=== PATIENT | male | born 1955 | race Hispanic/Latino ===

== ENCOUNTER → 2020-06-21 | Outpatient (CLI) | payer MEDICARE ==
[~2020-06-21] MED LIST: ACAR50TA5 PO; ASPI-1443 PO; ATOR40TA71 PO; CEFAZOLIN SODIUM 1 GM VIAL IVP SCH; CETI10TA86 PO; CILO100T PO; FAMO20TA8 PO; FURO20TA4 PO; GLIP10TA9 PO; HYDR-4068 PO; LOSA50TA64 PO; METF-445 PO; METO25TA6 PO; MONT10TA32 PO; SODIUM CHLORIDE 0.9% 500ML 500 ML IV SCH
[2020-06-21 15:24] LABS: BASOPHILS % (AUTO) 0.5 % (0.0-5.0); EOSINOPHILS % (AUTO) 4.6 % (0.0-8.0); HEMATOCRIT 47.8 % (42-54); LYMPHOCYTES % (AUTO) 19.2 % (21.0-51.0); MEAN CORPUSCULAR HEMOGLOBIN 29.2 pg (27.0-33.0); MEAN CORPUSCULAR HGB CONC 32.2 g/dL (32.0-36.0); MEAN CORPUSCULAR VOLUME 90.5 fL (79-99); MONOCYTES % (AUTO) 9.6 % (3.0-13.0); NEUTROPHILS % (AUTO) 65.8 % (40.0-77.0); PLATELET COUNT (AUTO) 295 K/uL (130-400); RED BLOOD CELL COUNT(AUTO) 5.28 MIL/uL (4.50-6.20); RED CELL DISTRIBUTION WIDTH 12.7 % (11.0-15.5); WHITE BLOOD COUNT (AUTO) 7.4 K/uL (4.8-10.8)
[2020-06-21 15:36] LABS: CREATININE 0.7 mg/dL (0.5-1.5); POTASSIUM 4.2 mmol/L (3.5-5.1)
[2020-06-21 15:44] LABS: INR 1.03 (0.85-1.15); PROTHROMBIN TIME 11.2 SEC (9.6-11.6)
== END | disposition home or self-care (01) ==
LOC: DAH 10:00 → EDSTATUS 13:00
PROVIDERS: ATTEND Internal Medicine Cardiovascular Disease
DX: Z01.818 Encounter for other preprocedural examination (principal); I50.22 Chronic systolic (congestive) heart failure; I44.7 Left bundle-branch block, unspecified; I42.8 Other cardiomyopathies; Z79.01 Long term (current) use of anticoagulants
CPT/HCPCS: 36415; 80048; 85025; 85610; 85730; 93005

== ENCOUNTER → 2020-06-22 | Outpatient (CLI) | payer MEDICARE ==
[~2020-06-22] VITALS: Ht 162.6 cm; Wt 83.3 kg
[~2020-06-22] MED LIST changes: -CEFAZOLIN SODIUM 1 GM VIAL IVP SCH; -SODIUM CHLORIDE 0.9% 500ML 500 ML IV SCH
== END | disposition home or self-care (01) ==
LOC: SHCH 11:38
PROVIDERS: ATTEND Internal Medicine Cardiovascular Disease
DX: I08.0 Rheumatic disorders of both mitral and aortic valves (principal); I50.22 Chronic systolic (congestive) heart failure; I11.0 Hypertensive heart disease with heart failure; E66.9 Obesity, unspecified; E78.5 Hyperlipidemia, unspecified
CPT/HCPCS: 93306; 93356

== ENCOUNTER 2021-08-13 05:52 | Observation (INO) | payer OTHER, MEDICARE ==
[~2021-08-13] VITALS: Ht 162.6 cm; Wt 82.6 kg
[~2021-08-13 05:52] MED LIST changes: -CETI10TA86 PO; +CETI10TA87 PO; +MONT-39 PO; -MONT10TA32 PO
[2021-08-13 06:09] LABS: BASOPHILS % (AUTO) 0.5 % (0.0-5.0); EOSINOPHILS % (AUTO) 2.1 % (0.0-8.0); HEMATOCRIT 46.4 % (42-54); LYMPHOCYTES % (AUTO) 17.6 % (21.0-51.0); MEAN CORPUSCULAR HEMOGLOBIN 28.6 pg (27.0-33.0); MEAN CORPUSCULAR HGB CONC 33.2 g/dL (32.0-36.0); MEAN CORPUSCULAR VOLUME 86.2 fL (79-99); MONOCYTES % (AUTO) 6.1 % (3.0-13.0); NEUTROPHILS % (AUTO) 73.3 % (40.0-77.0); PLATELET COUNT (AUTO) 237 K/uL (130-400); RED BLOOD CELL COUNT(AUTO) 5.38 MIL/uL (4.50-6.20); RED CELL DISTRIBUTION WIDTH 13.9 % (11.0-15.5); WHITE BLOOD COUNT (AUTO) 9.9 K/uL (4.8-10.8)
[2021-08-13 06:19] LABS: CREATININE 0.6 mg/dL (0.5-1.5); POTASSIUM 3.3 mmol/L (3.5-5.1)
[2021-08-13 06:21] LABS: INR 1.05 (0.85-1.15); PROTHROMBIN TIME 11.4 SEC (9.6-11.6)
[2021-08-13 06:22] LABS: PARTIAL THROMBOPLASTIN TIME 27.2 SEC (26.3-35.5)
[2021-08-13 06:29] LABS: ALBUMIN 3.2 g/dL (3.5-5.0); BILIRUBIN,TOTAL 0.4 mg/dL (0.2-1.0); MAGNESIUM 1.4 mg/dL (1.80-2.40); TOTAL PROTEIN, SERUM 6.7 g/dL (6.0-8.3)
[2021-08-13] MEDS ORDERED: ACETAMINOPHEN 325 MG TAB PO ONE (06:30)
[2021-08-13] MEDS ORDERED: IPRATROPIUM/ALBUTEROL SULFATE 3 ML SOLUTION IH ONE ×2 (06:30→07:30)
[2021-08-13 06:50] LABS: B-TYPE NATRIURETIC PEPTIDE 347 pg/mL (0-100)
[2021-08-13] MEDS ORDERED: ONDANSETRON 4MG INJ IV PRN (07:00)
[2021-08-13] MEDS ORDERED: NITROGLYCERIN 0.4 MG SL TAB SL PRN (07:00)
[2021-08-13] MEDS ORDERED: GUAIFENESIN-DM 200/20 MG 10 ML PO PRN (07:00)
[2021-08-13] MEDS ORDERED: LACTULOSE 20 GM/30 ML UDCUP PO PRN (07:00)
[2021-08-13] MEDS ORDERED: ACETAMINOPHEN 325 MG TAB PO PRN ×2 (07:00)
[2021-08-13] MEDS ORDERED: MAG/ALUM/SIMETH 30 ML UDCUP PO PRN (07:00)
[2021-08-13] MEDS ORDERED: ONDANSETRON 4MG INJ ONE (07:26)
[2021-08-13] MEDS ORDERED: MORPHINE 2 MG SYG ONE (07:27)
[2021-08-13] MEDS ORDERED: MORPHINE 2 MG SYG IVP ONE (07:30)
[2021-08-13] MEDS ORDERED: ONDANSETRON 4MG INJ IVP ONE (07:30)
[2021-08-13] MEDS ORDERED: MAGNESIUM OXIDE 400 MG TABLET PO SCH (07:30)
[2021-08-13] MEDS: IPRATROPIUM/ALBUTEROL SULFATE 3 ML SOLUTION IH SCH ×4 (07:34→23:32)
[2021-08-13 09:05] LABS: APPEARANCE,URINE Clear (CLEAR); BILIRUBIN,URINE Negative (NEGATIVE); COLOR,URINE Yellow (YELLOW); GLUCOSE, URINE (UA) >=1000 mg/dL (NEGATIVE); KETONES,URINE Negative (NEGATIVE); LEUKOCYTE ESTERASE ,URINE Negative (NEGATIVE); NITRATE,URINE Negative (NEGATIVE); OCCULT BLOOD,URINE Negative (NEGATIVE); PH,URINE 5.5 (5.0-8.0); PROTEIN,URINE Negative (NEGATIVE)
[2021-08-13 09:12] LABS: AMPHET/METH SCREEN,URINE NEGATIVE (NEGATIVE); BARBITURATE SCREEN, URINE NEGATIVE (NEGATIVE); BENZODIAZEPINES SCREEN,URINE NEGATIVE (NEGATIVE); CANNABINOID SCREEN,URINE NEGATIVE (NEGATIVE); COCAINE SCREEN,URINE NEGATIVE (NEGATIVE); OPIATE SCREEN,URINE POSITIVE (NEGATIVE); PHENCYCLIDINE SCREEN,URINE NEGATIVE (NEGATIVE)
[2021-08-13] MEDS ORDERED: FUROSEMIDE 40MG VIAL IV ONE (09:30)
[2021-08-13] MEDS ORDERED: PHARMACY COMMUNICATION MISC SCH (09:30)
[2021-08-13 09:56] LABS: BACTERIA,URINE None Seen /HPF (None Seen); RBC,URINE 0-1 /HPF (0-1); SQUAMOUS EPITHELIAL CELL,UR Rare /HPF (0-2); WBC,URINE 0-1 /HPF (0-1)
[2021-08-13] MEDS: FAMOTIDINE 20MG VIAL IV SCH (10:05)
[2021-08-13] MEDS: ENOXAPARIN SODIUM 40 MG/0.4 ML SYRINGE SQ SCH (10:05)
[2021-08-13] MEDS: PREDNISONE 20 MG TABLET PO SCH (10:06)
[2021-08-13 10:15] VITALS: BP 180/91
[2021-08-13] MEDS ORDERED: POTASSIUM CHLORIDE 10% ELIXIR 20 MEQ/15 ML UDCUP PO PRN (10:30)
[2021-08-13] MEDS ORDERED: POTASSIUM CHLORIDE 20MEQ/100ML 100 ML IV PRN (10:30)
[2021-08-13] MEDS: KCL 20 MEQ ERTAB PO PRN ×3 (10:30→16:52)
[2021-08-13] MEDS ORDERED: LIDOCAINE HCL-MPF 1% 2ML VIAL IV PRN (10:30)
[2021-08-13 11:05] VITALS: BP 138/76
[2021-08-13 15:50] VITALS: BP 157/70
[2021-08-13] MEDS ORDERED: OMEP20CA12 PO (16:05)
[2021-08-13] MEDS ORDERED: FUROSEMIDE 40MG VIAL IV SCH (16:30)
[2021-08-13] MEDS: KETOROLAC 15MG/ML VIAL (15MG/ML) IM PRN (16:52)
[2021-08-13 19:00] VITALS: BP 156/67
[2021-08-13] MEDS ORDERED: GABAPENTIN 100 MG CAPSULE ONE (19:36)
[2021-08-13] MEDS: ZOLPIDEM TARTRATE 5 MG TAB PO PRN (20:01)
[2021-08-13] MEDS: GABAPENTIN 100 MG CAPSULE PO SCH (20:01)
[2021-08-13] MEDS: SACUBITRIL/VALSARTAN 1 EACH TABLET PO SCH (20:02)
[2021-08-14] VITALS: BP 141/69
[2021-08-14 04:00] VITALS: BP 141/72
[2021-08-14 04:40] LABS: BASOPHILS % (AUTO) 0.3 % (0.0-5.0); EOSINOPHILS % (AUTO) 0.1 % (0.0-8.0); HEMATOCRIT 41.8 % (42-54); LYMPHOCYTES % (AUTO) 10.8 % (21.0-51.0); MEAN CORPUSCULAR HEMOGLOBIN 29.6 pg (27.0-33.0); MEAN CORPUSCULAR HGB CONC 34.4 g/dL (32.0-36.0); MONOCYTES % (AUTO) 8.1 % (3.0-13.0); NEUTROPHILS % (AUTO) 80.3 % (40.0-77.0); PLATELET COUNT (AUTO) 251 K/uL (130-400); RED BLOOD CELL COUNT(AUTO) 4.86 MIL/uL (4.50-6.20); RED CELL DISTRIBUTION WIDTH 14.4 % (11.0-15.5); WHITE BLOOD COUNT (AUTO) 13.6 K/uL (4.8-10.8)
[2021-08-14 04:58] LABS: ALBUMIN 3.4 g/dL (3.5-5.0); BILIRUBIN,TOTAL 0.5 mg/dL (0.2-1.0); CREATININE 0.8 mg/dL (0.5-1.5); POTASSIUM 3.3 mmol/L (3.5-5.1); TOTAL PROTEIN, SERUM 7.1 g/dL (6.0-8.3)
[2021-08-14 05:10] LABS: B-TYPE NATRIURETIC PEPTIDE 169 pg/mL (0-100)
[2021-08-14] MEDS: IPRATROPIUM/ALBUTEROL SULFATE 3 ML SOLUTION IH SCH ×4 (06:30→23:47)
[2021-08-14 08:00] VITALS: BP 129/64
[2021-08-14] MEDS: FAMOTIDINE 20MG VIAL IV SCH (09:00)
[2021-08-14] MEDS ORDERED: FUROSEMIDE 20 MG TABLET PO SCH (09:00)
[2021-08-14] MEDS: GABAPENTIN 100 MG CAPSULE PO SCH ×3 (09:01→21:07)
[2021-08-14] MEDS: PREDNISONE 20 MG TABLET PO SCH (09:01)
[2021-08-14] MEDS: SACUBITRIL/VALSARTAN 1 EACH TABLET PO SCH ×2 (09:02→21:07)
[2021-08-14] MEDS: ASPIRIN 81 MG EC TAB PO SCH (09:02)
[2021-08-14] MEDS: ENOXAPARIN SODIUM 40 MG/0.4 ML SYRINGE SQ SCH (09:03)
[2021-08-14] MEDS: METOPROLOL SUCCINATE 50 MG TAB.SR.24H PO SCH (09:03)
[2021-08-14] MEDS: KCL 20 MEQ ERTAB PO PRN ×2 (09:12→21:07)
[2021-08-14] MEDS: KETOROLAC 15MG/ML VIAL (15MG/ML) IM PRN (10:10)
[2021-08-14 12:00] VITALS: BP 131/74
[2021-08-14 16:00] VITALS: BP 130/64
[2021-08-14] MEDS: INSULIN HUMULIN R 100 UNIT/ML 3ML SQ SCH ×2 (17:06→20:45)
[2021-08-14 19:00] VITALS: BP 113/67
[2021-08-14] MEDS ORDERED: FUROSEMIDE 40 MG TABLET PO SCH (21:00)
[2021-08-14] MEDS: FUROSEMIDE 20 MG TABLET PO SCH (21:06)
[2021-08-14] MEDS: MONTELUKAST SODIUM 10 MG TAB PO SCH (21:07)
[2021-08-15] VITALS: BP 127/57
[2021-08-15 04:00] VITALS: BP 128/73
[2021-08-15 05:10] LABS: BASOPHILS % (AUTO) 0.4 % (0.0-5.0); EOSINOPHILS % (AUTO) 0.7 % (0.0-8.0); HEMATOCRIT 43.5 % (42-54); LYMPHOCYTES % (AUTO) 15.1 % (21.0-51.0); MEAN CORPUSCULAR HEMOGLOBIN 29.7 pg (27.0-33.0); MEAN CORPUSCULAR VOLUME 87.2 fL (79-99); MONOCYTES % (AUTO) 9.4 % (3.0-13.0); PLATELET COUNT (AUTO) 250 K/uL (130-400); RED BLOOD CELL COUNT(AUTO) 4.99 MIL/uL (4.50-6.20); RED CELL DISTRIBUTION WIDTH 14.6 % (11.0-15.5); WHITE BLOOD COUNT (AUTO) 11.3 K/uL (4.8-10.8)
[2021-08-15 05:25] LABS: ALBUMIN 3.1 g/dL (3.5-5.0); BILIRUBIN,TOTAL 0.5 mg/dL (0.2-1.0); CREATININE 0.7 mg/dL (0.5-1.5); POTASSIUM 4.2 mmol/L (3.5-5.1); TOTAL PROTEIN, SERUM 6.9 g/dL (6.0-8.3)
[2021-08-15] MEDS: INSULIN HUMULIN R 100 UNIT/ML 3ML SQ SCH ×4 (06:07→19:41)
[2021-08-15] MEDS: IPRATROPIUM/ALBUTEROL SULFATE 3 ML SOLUTION IH SCH ×4 (06:34→23:35)
[2021-08-15 08:00] VITALS: BP 129/59
[2021-08-15] MEDS: GABAPENTIN 100 MG CAPSULE PO SCH ×3 (09:17→19:32)
[2021-08-15] MEDS: ENOXAPARIN SODIUM 40 MG/0.4 ML SYRINGE SQ SCH (09:17)
[2021-08-15] MEDS: SACUBITRIL/VALSARTAN 1 EACH TABLET PO SCH ×2 (09:18→19:32)
[2021-08-15] MEDS: METOPROLOL SUCCINATE 50 MG TAB.SR.24H PO SCH (09:18)
[2021-08-15] MEDS: PREDNISONE 20 MG TABLET PO SCH (09:18)
[2021-08-15] MEDS: FAMOTIDINE 20MG VIAL IV SCH (09:18)
[2021-08-15] MEDS: FUROSEMIDE 20 MG TABLET PO SCH ×2 (09:18→19:33)
[2021-08-15] MEDS: ASPIRIN 81 MG EC TAB PO SCH (09:22)
[2021-08-15] MEDS: KETOROLAC 15MG/ML VIAL (15MG/ML) IM PRN (10:08)
[2021-08-15 12:00] VITALS: BP 133/75
[2021-08-15 16:00] VITALS: BP 139/61
[2021-08-15] MEDS: ZOLPIDEM TARTRATE 5 MG TAB PO PRN (19:32)
[2021-08-15] MEDS: MONTELUKAST SODIUM 10 MG TAB PO SCH (19:32)
[2021-08-15 20:00] VITALS: BP 128/68
[2021-08-15 21:24] LABS: HEMATOCRIT 48.6 % (42-54); MEAN CORPUSCULAR HEMOGLOBIN 28.5 pg (27.0-33.0); MEAN CORPUSCULAR HGB CONC 32.3 g/dL (32.0-36.0); MEAN CORPUSCULAR VOLUME 88.2 fL (79-99); PLATELET COUNT (AUTO) 274 K/uL (130-400); RED BLOOD CELL COUNT(AUTO) 5.51 MIL/uL (4.50-6.20); RED CELL DISTRIBUTION WIDTH 14.5 % (11.0-15.5); WHITE BLOOD COUNT (AUTO) 11.2 K/uL (4.8-10.8)
[2021-08-15 21:27] LABS: BASOPHILS % (AUTO) 0.2 % (0.0-5.0); LYMPHOCYTES % (AUTO) 6.2 % (21.0-51.0); MONOCYTES % (AUTO) 6.7 % (3.0-13.0); NEUTROPHILS % (AUTO) 86.5 % (40.0-77.0)
[2021-08-16 00:03] VITALS: BP 168/60
[2021-08-16 04:25] VITALS: BP 126/66
[2021-08-16 04:58] LABS: CREATININE 0.7 mg/dL (0.5-1.5); POTASSIUM 4.1 mmol/L (3.5-5.1)
[2021-08-16] MEDS: INSULIN HUMULIN R 100 UNIT/ML 3ML SQ SCH ×2 (05:28→11:57)
[2021-08-16] MEDS: IPRATROPIUM/ALBUTEROL SULFATE 3 ML SOLUTION IH SCH ×3 (06:36→17:21)
[2021-08-16 07:10] VITALS: BP 152/75
[2021-08-16] MEDS: FAMOTIDINE 20MG VIAL IV SCH (07:56)
[2021-08-16] MEDS: PREDNISONE 20 MG TABLET PO SCH (07:56)
[2021-08-16] MEDS: ASPIRIN 81 MG EC TAB PO SCH (07:56)
[2021-08-16] MEDS: METOPROLOL SUCCINATE 50 MG TAB.SR.24H PO SCH (07:56)
[2021-08-16] MEDS: FUROSEMIDE 20 MG TABLET PO SCH (07:57)
[2021-08-16] MEDS: ENOXAPARIN SODIUM 40 MG/0.4 ML SYRINGE SQ SCH (07:57)
[2021-08-16] MEDS: GABAPENTIN 100 MG CAPSULE PO SCH ×2 (07:59→14:25)
[2021-08-16] MEDS: SACUBITRIL/VALSARTAN 1 EACH TABLET PO SCH (07:59)
[2021-08-16] MEDS: KETOROLAC 15MG/ML VIAL (15MG/ML) IM PRN (08:20)
[2021-08-16 11:15] VITALS: BP 142/77
[2021-08-16 15:05] VITALS: BP 139/71
[2021-08-16] MEDS ORDERED: PRED20B PO (17:05)
== END 2021-08-16 18:04 | disposition home or self-care (01) ==
LOC: EDH 05:52 → EDHIP 06:55 → 4DH 09:58
PROVIDERS: ADMIT Internal Medicine Critical Care Medicine; ATTEND Internal Medicine Critical Care Medicine
DX: J96.01 Acute respiratory failure with hypoxia (principal); Z20.822 Contact with and (suspected) exposure to COVID-19; I11.0 Hypertensive heart disease with heart failure; I50.23 Acute on chronic systolic (congestive) heart failure; I50.21 Acute systolic (congestive) heart failure; E11.51 Type 2 diabetes mellitus with diabetic peripheral angiopathy without gangrene; E78.5 Hyperlipidemia, unspecified; E83.42 Hypomagnesemia; E87.6 Hypokalemia; R07.89 Other chest pain; G89.29 Other chronic pain; I25.10 Atherosclerotic heart disease of native coronary artery without angina pectoris; I42.0 Dilated cardiomyopathy; I44.7 Left bundle-branch block, unspecified; I73.9 Peripheral vascular disease, unspecified; I50.22 Chronic systolic (congestive) heart failure; J18.9 Pneumonia, unspecified organism; J45.909 Unspecified asthma, uncomplicated; Z79.02 Long term (current) use of antithrombotics/antiplatelets; Z79.84 Long term (current) use of oral hypoglycemic drugs; Z95.5 Presence of coronary angioplasty implant and graft; Z79.82 Long term (current) use of aspirin; Z79.899 Other long term (current) drug therapy; Z98.890 Other specified postprocedural states
CPT/HCPCS: 36415 ×4; 71045 ×2; 71250; 78582; 80048; 80053 ×3; 80305; 81001; 82948 ×9; 83735; 83880 ×2; 84145; 84484 ×3; 85025 ×4; 85378; 85610; 85730; 87635; 87804 ×2; 93005 ×3; 93306; 93356; 93970; 94640 ×15; 94664; 94760 ×5; 96372 ×4; 96374; 96375; 96376 ×4; 99285; A4606; A9540; A9558; C9803; G0378 ×75; J1650 ×4; J1815 ×2; J1885 ×5; J1940 ×2; J2405; J3490 ×4

== ENCOUNTER → 2021-12-18 | Outpatient (CLI) | payer OTHER, MEDICARE ==
[~2021-12-18] MED LIST changes: +OMEP20CA12 PO; +PRED20B PO
== END | disposition home or self-care (01) ==
LOC: SHCH 14:35
PROVIDERS: ATTEND Internal Medicine Cardiovascular Disease
DX: I34.0 Nonrheumatic mitral (valve) insufficiency (principal); I25.5 Ischemic cardiomyopathy; E11.9 Type 2 diabetes mellitus without complications; E78.5 Hyperlipidemia, unspecified
CPT/HCPCS: 93306

== ENCOUNTER 2022-01-20 01:47 | Emergency (ER) | payer OTHER, MEDICARE ==
[~2022-01-20] VITALS: Ht 162.6 cm; Wt 88.5 kg
[2022-01-20 02:11] LABS: BASOPHILS % (AUTO) 0.6 % (0.0-5.0); EOSINOPHILS % (AUTO) 2.7 % (0.0-8.0); HEMATOCRIT 48.9 % (42-54); LYMPHOCYTES % (AUTO) 17.3 % (21.0-51.0); MEAN CORPUSCULAR HEMOGLOBIN 28.6 pg (27.0-33.0); MEAN CORPUSCULAR HGB CONC 32.9 g/dL (32.0-36.0); MONOCYTES % (AUTO) 8.1 % (3.0-13.0); PLATELET COUNT (AUTO) 291 K/uL (130-400); RED BLOOD CELL COUNT(AUTO) 5.62 MIL/uL (4.50-6.20); RED CELL DISTRIBUTION WIDTH 13.9 % (11.0-15.5); WHITE BLOOD COUNT (AUTO) 12.4 K/uL (4.8-10.8)
[2022-01-20 02:16] LABS: APPEARANCE,URINE CLEAR (CLEAR); BILIRUBIN,URINE NEGATIVE (NEGATIVE); COLOR,URINE COLORLESS (YELLOW); GLUCOSE, URINE (UA) >=1000 mg/dL (NEGATIVE); KETONES,URINE NEGATIVE (NEGATIVE); LEUKOCYTE ESTERASE ,URINE NEGATIVE Leu/uL (NEGATIVE); NITRATE,URINE NEGATIVE (NEGATIVE); OCCULT BLOOD,URINE NEGATIVE (NEGATIVE); PH,URINE 6.5 (5.0-8.0); PROTEIN,URINE NEGATIVE (NEGATIVE); UROBILINOGEN,URINE 0.2 mg/dL (0.2-1.0)
[2022-01-20 02:19] LABS: CREATININE 0.8 mg/dL (0.5-1.5); POTASSIUM 3.7 mmol/L (3.5-5.1)
[2022-01-20 02:24] LABS: ALBUMIN 3.8 g/dL (3.5-5.0); TOTAL PROTEIN, SERUM 8.2 g/dL (6.0-8.3)
[2022-01-20 02:27] LABS: BACTERIA,URINE None Seen /HPF (None Seen); RBC,URINE None Seen /HPF (0-1); WBC,URINE None Seen /HPF (0-1)
[2022-01-20 02:34] LABS: B-TYPE NATRIURETIC PEPTIDE 412 pg/mL (0-100)
[2022-01-20] MEDS ORDERED: MORPHINE 2 MG SYG IVP ONE (03:30)
[2022-01-20] MEDS ORDERED: FUROSEMIDE 40MG VIAL IV ONE (03:30)
[2022-01-20] MEDS ORDERED: IBUP-2088 PO (04:55)
[2022-01-20 05:02] VITALS: BP 139/78
== END 2022-01-20 05:13 | disposition home or self-care (01) ==
LOC: EDH 01:47
DX: S16.1XXA Strain of muscle, fascia and tendon at neck level, initial encounter (principal); M54.12 Radiculopathy, cervical region; I11.0 Hypertensive heart disease with heart failure; I50.9 Heart failure, unspecified; E11.9 Type 2 diabetes mellitus without complications; E78.00 Pure hypercholesterolemia, unspecified; J44.9 Chronic obstructive pulmonary disease, unspecified; Z20.822 Contact with and (suspected) exposure to COVID-19; Z79.52 Long term (current) use of systemic steroids; Z79.82 Long term (current) use of aspirin; Z79.84 Long term (current) use of oral hypoglycemic drugs; Z79.899 Other long term (current) drug therapy; X58.XXXA Exposure to other specified factors, initial encounter; Y93.89 Activity, other specified; Y92.89 Other specified places as the place of occurrence of the external cause; Y99.8 Other external cause status
CPT/HCPCS: 99285; 96374; 71045; 87635; 96375; 84484; 80053; 83880; 85025; 87804 ×2; 81001; 36415; 93005; C9803; J1940

== ENCOUNTER 2022-03-04 07:34 | Day surgery (SDC) | payer OTHER, MEDICARE ==
[2022-02-25 13:36] LABS: BASOPHILS % (AUTO) 0.7 % (0.0-5.0); EOSINOPHILS % (AUTO) 3.5 % (0.0-8.0); HEMATOCRIT 46.5 % (42-54); LYMPHOCYTES % (AUTO) 19.6 % (21.0-51.0); MEAN CORPUSCULAR HEMOGLOBIN 28.8 pg (27.0-33.0); MEAN CORPUSCULAR HGB CONC 33.3 g/dL (32.0-36.0); MEAN CORPUSCULAR VOLUME 86.4 fL (79-99); MONOCYTES % (AUTO) 9.5 % (3.0-13.0); NEUTROPHILS % (AUTO) 66.5 % (40.0-77.0); PLATELET COUNT (AUTO) 280 K/uL (130-400); RED BLOOD CELL COUNT(AUTO) 5.38 MIL/uL (4.50-6.20); RED CELL DISTRIBUTION WIDTH 14.5 % (11.0-15.5)
[2022-02-25 13:47] LABS: CREATININE 0.7 mg/dL (0.5-1.5)
[2022-02-25 14:04] LABS: INR 0.94 (0.85-1.15); PROTHROMBIN TIME 10.3 SEC (9.6-11.6)
[2022-02-25 14:06] LABS: PARTIAL THROMBOPLASTIN TIME 28.5 SEC (26.3-35.5)
[2022-03-03 10:26] VITALS: BP 136/74
[2022-03-04] VITALS (9 sets, daily range): BP systolic 118–130; BP diastolic 62–91
[~2022-03-04] VITALS: Ht 162.6 cm; Wt 84.2 kg
[~2022-03-04 07:34] MED LIST changes: +0.9%NACL 1000ML 1,000 ML IV SCH; +ALBU90AE2 IH; +CETI10TA57 PO; -CETI10TA87 PO; -CILO100T PO; +EMPA10TA PO; -FAMO20TA8 PO; +FLUT1BLS15 IH; -FURO20TA4 PO; +FURO40TA5 PO; -LOSA50TA64 PO; +METO-408 PO; -METO25TA6 PO; -OMEP20CA12 PO; +POTA10CA44 PO; -PRED20B PO; +SACU1TAB7 PO; +THEO400T3 PO
[2022-03-04] MEDS ORDERED: 0.9%NACL 1000ML 1,000 ML IV ONE (08:05)
[2022-03-04] MEDS ORDERED: LIDOCAINE HCL 1% 20 ML VIAL ONE (08:48)
[2022-03-04] MEDS ORDERED: NITROGLYCERIN 50MG VIAL ONE (08:49)
[2022-03-04] MEDS ORDERED: VERAPAMIL HCL 2.5 MG/ML VIAL ONE (08:49)
[2022-03-04] MEDS ORDERED: HEPARIN 10,000 UNIT/10ML (1,000 UNIT/ML) VIAL ONE (08:49)
[2022-03-04] MEDS ORDERED: IOHEXOL 350 MG/ML 100ML INFUS..BTL IV ONE (08:49)
[2022-03-04] MEDS ORDERED: FENTANYL CITRATE PF 50 MCG/1 ML 2ML VIAL ONE (08:50)
[2022-03-04] MEDS ORDERED: MIDAZOLAM HCL 1 MG/ML 2ML VIAL ONE ×2 (08:50→09:22)
[2022-03-04] MEDS ORDERED: GLUCAGON 1MG KIT 1 MG ML IM PRN (10:30)
[2022-03-04] MEDS ORDERED: DEXTROSE 50%-WATER 50 ML DISP.SYRIN IV PRN (10:30)
== END 2022-03-04 13:20 | disposition home or self-care (01) ==
LOC: DAH 07:34
PROVIDERS: ATTEND Student in an Organized Health Care Education/Training Program
DX: I25.119 Atherosclerotic heart disease of native coronary artery with unspecified angina pectoris (principal); I11.0 Hypertensive heart disease with heart failure; I50.42 Chronic combined systolic (congestive) and diastolic (congestive) heart failure; I44.7 Left bundle-branch block, unspecified; E11.51 Type 2 diabetes mellitus with diabetic peripheral angiopathy without gangrene; E78.5 Hyperlipidemia, unspecified; I42.0 Dilated cardiomyopathy; Z79.01 Long term (current) use of anticoagulants; Z79.899 Other long term (current) drug therapy; Z95.5 Presence of coronary angioplasty implant and graft; Z79.84 Long term (current) use of oral hypoglycemic drugs; Z87.891 Personal history of nicotine dependence; Z72.89 Other problems related to lifestyle; Z79.82 Long term (current) use of aspirin
CPT/HCPCS: 80048; 85025; 85610; 85730; 36415; 71045; 93005; 93458; 82948; C1769; C1894 ×2; Q9965; J3010; J7030; J1644 ×3; J2250 ×2; J3490 ×2; Q9967; A4215; A4222; A4221; A4663; A4216; A4606; A4223 ×3; 99156; 99157

== ENCOUNTER → 2022-09-08 | Outpatient (CLI) | payer OTHER, MEDICARE ==
[~2022-09-08] MED LIST changes: -0.9%NACL 1000ML 1,000 ML IV SCH; +AEC81 PO; -ALBU90AE2 IH; +APIX5TAB PO; -ASPI-1443 PO; +FAMO20TA8 PO; +FLUT16H NASAL; -FLUT1BLS15 IH; -METF-445 PO; +METF750T46 PO; +METO25 PO; +OMEP20CA12 PO; +POLY17PO4 PO; -POTA10CA44 PO; +POTA10CA45 PO; +SACU1TAB PO; -SACU1TAB7 PO
== END | disposition home or self-care (01) ==
LOC: SHCH 10:32
PROVIDERS: ATTEND Internal Medicine Cardiovascular Disease
DX: I25.5 Ischemic cardiomyopathy (principal); I42.0 Dilated cardiomyopathy; E11.9 Type 2 diabetes mellitus without complications; E78.5 Hyperlipidemia, unspecified; I34.0 Nonrheumatic mitral (valve) insufficiency; Z95.1 Presence of aortocoronary bypass graft
CPT/HCPCS: 93306

== ENCOUNTER → 2024-02-29 | Outpatient (CLI) | payer OTHER, MEDICARE ==
[~2024-02-29] MED LIST changes: +GLIP10TA16 PO; -GLIP10TA9 PO; -POTA10CA45 PO; +POTA10CA95 PO
[2024-02-29 16:34] LABS: CREATININE 0.7 mg/dL (0.5-1.3); POTASSIUM 3.7 mmol/L (3.5-5.1)
== END | disposition home or self-care (01) ==
LOC: LAB 12:55
PROVIDERS: ATTEND Internal Medicine Cardiovascular Disease
DX: I10 Essential (primary) hypertension (principal)
CPT/HCPCS: 36415; 80048

== ENCOUNTER → 2024-03-14 | Outpatient (CLI) | payer OTHER, MEDICARE ==
--- NOTE | 2024-03-15 08:28 | HMCSR ---
APPROVED REPORT Laterality: Bilateral Doppler Spectral Velocity Analysis PSV / EDVPSV / EDV ECA (R) 92 / cm/sECA (L) 129 / cm/s dICA (R) 118 / 39 cm/sdICA (L) 153 / 31 cm/s Amaury (R) 95 / 25 cm/smICA (L) 194 / 47 cm/s pICA (R) 74 / 24 cm/spICA (L) 176 / 49 cm/s dCCA (R) 74 / 13 cm/sdCCA (L) 88 / 15 cm/s mCCA (R) 93 / 14 cm/smCCA (L) 109 / 21 cm/s pCCA (R) 75 / 10 cm/spCCA (L) 131 / 22 cm/s Vert (R) 54 / cm/sVert (L) 52 / cm/s Subl. (R) 167 / cm/sSubl. (L) 129 / cm/s ICA/CCA 1.27ICA/CCA 1.48 Technologist Impression Mild heterogenous plaque noted in the bilateral carotid arteries. There is evidence of 50-69% stenosis in the left internal carotid artery. The bilateral vertebral arteries reflect antegrade flow. Conclusion As above. Conclusion As above.
--- NOTE | 2024-03-15 08:33 | HMCSR ---
APPROVED REPORT EXAM: Two-dimensional and M-mode echocardiogram with Doppler and color Doppler. 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 Surgery/Intervention CABG: Date: 2022 RISK FACTORS Hyperlipidemia Diabetes 2D Dimensions RVDd4.1 cmLVEF(%)17.7 (>50%)LVED Vol(simp.)213.0 mL IVSd1.3 (0.7-1.1cm)FS(%)8 %LVES Vol(simp.)161.0 mL LVDd6.0 (3.8-5.6cm)Ao Root(2D)3.4 (2.0-3.7cm)LVEF(%, simp.)25 % PWd1.3 (0.7-1.1cm)LVOT diam2.2 (1.8-2.4cm)LA ESV INDEX (BP)46.33 mL/m2 LVDs5.5 (2.5-4.0cm)IVC diam1.2 cm Aortic Valve AoV Vmax1.3 m/Juliana Peak GR6.6 mmHgLVOT Vmax0.8 m/s AoV VTI0.3 mAo Mean GR3.4 mmHgLVOT VTI0.15 m STACEY (VMAX)2.3 cm2AVA (VTI) 2.3 cm2 Mitral Valve MV E Vmax83.5 cm/sDECEL Dbqn380 ms MV A Vmax87.4 cm/sP 1/2 T51 ms E/A ratio1.0MVA (PHT)4.3 cm2 TDI E/E' Efrvlc41.6E/E' Zwmlovt91.4 Pulmonary Valve PV Vmax1.0 m/sPV VTI0.19 mPV Mean GR2 mmHg PV Peak GR3.9 mmHg Tricuspid Valve TR Vmax2.1 m/sRAP (EST) 3 [id number] mmHg TR Peak GR16.9 mmHg Left Ventricle The left ventricle is moderately dilated. Distal septal, apical, lateral and distal anterior hypokine sis. There is mild concentric left ventricular hypertrophy. LVEF is 20-25%. Grade 2 diastolic dysfunc tion. Right Ventricle The right ventricle is borderline to mildly dilated. Right ventricular systolic function is moderatel y reduced. Device lead is present in the right ventricle. Atria The left atrium is moderately dilated. The right atrium size is normal. Aortic Valve Aortic valve is trileaflet. Aortic valve leaflets are thickened and calcified. Trace aortic regurgita tion. There is no aortic valvular stenosis. Mitral Valve Mitral annular calcification is mild. Mitral valve leaflets are sclerotic but open well. The mitral v alve chordae are calcified. Mitral regurgitation is trace. There is no mitral valve stenosis. Tricuspid Valve The tricuspid valve leaflets appear normal. There is mild tricuspid regurgitation. Pulmonic Valve The pulmonic valve leaflets are thin and pliable; valve motion is normal. There is trace pulmonic ousmane vular regurgitation. Great Vessels The aortic root is normal in size. The IVC is normal in size and collapses >50% with inspiration. Pericardium No pericardial effusion. Conclusion The left ventricle is moderately dilated. There is mild concentric left ventricular hypertrophy. LVEF is 20-25%. Grade 2 diastolic dysfunction. Distal septal, apical, lateral and distal anterior hypokinesis. Device lead is present in the right ventricle. Trace aortic regurgitation. Mitral annular calcification is mild. Mitral valve leaflets are sclerotic but open well. The mitral valve chordae are calcified. Mitral regurgitation is trace.
== END | disposition home or self-care (01) ==
LOC: SHCH 13:02
PROVIDERS: ATTEND Internal Medicine Cardiovascular Disease
DX: I08.0 Rheumatic disorders of both mitral and aortic valves (principal); I65.23 Occlusion and stenosis of bilateral carotid arteries; I25.10 Atherosclerotic heart disease of native coronary artery without angina pectoris; I42.9 Cardiomyopathy, unspecified; E11.9 Type 2 diabetes mellitus without complications; E78.5 Hyperlipidemia, unspecified; Z95.1 Presence of aortocoronary bypass graft
CPT/HCPCS: 93306; 93880